=== PATIENT | female | born 1965 | race Two or more races ===

== ENCOUNTER 2018-11-16 17:28 | Emergency (ER) | payer SELFPAY ==
[~2018-11-16] VITALS: Ht 152.4 cm; Wt 77.1 kg
[2018-11-16 20:20] VITALS: BP 108/77
== END 2018-11-16 21:35 | disposition home or self-care (01) ==
LOC: ER 17:35
DX: L02.212 Cutaneous abscess of back [any part, except buttock and flank] (principal)

== ENCOUNTER 2022-09-13 01:00 | Emergency (ER) | payer MEDICAID ==
[~2022-09-13] VITALS: Ht 152.4 cm; Wt 70.8 kg
[2022-09-13] MEDS ORDERED: LORazepam 2MG/ML-1ML VIAL IM ONE (01:45)
[2022-09-13] MEDS ORDERED: ONDANSETRON HCL 4 MG/2 ML VIAL IM ONE (01:45)
[2022-09-13] MEDS ORDERED: HYDROmorphone HCL 2 MG/ML VL/or syr IM ONE (01:45)
[2022-09-13] MEDS ORDERED: SODIUM CHLORIDE 0.9% 1,000 ML IV ONE ×2 (04:30→05:15)
[2022-09-13 06:00] VITALS: BP 106/70
[2022-09-13 07:04] LABS: Basophils # (auto) 0 10 ^3/uL (0-0.2); Basophils % (auto) 0.2 % (0.0-2.0); Eosinophils # (auto) 0 10 ^3/uL (0-0.8); Eosinophils % (auto) 0.5 % (0.0-7.0); Hematocrit 37.8 % (36.0-46.0); Hemoglobin 12.9 g/dL (12.2-16.2); Lymphocytes # (auto) 1.3 10 ^3/uL (0.4-5.4); Lymphocytes % (auto) 20.5 % (10.0-50.0); Mean Corpuscular Hemoglobin 31.3 pg (28.0-32.0); Mean Corpuscular Volume 92.1 fL (80.0-100.0); Monocytes # (auto) 0.4 10 ^3/uL (0-1.3); Monocytes % (auto) 5.8 % (0.0-12.0); Neutrophils # (auto) 4.6 10 ^3/uL (1.6-8.6); Red Blood Cells 4.11 10^6/uL (4.0-5.20); White Blood Cell 6.3 10^3/uL (4.4-10.8)
== END 2022-09-13 07:28 | disposition home or self-care (01) ==
LOC: ER 01:00
DX: S03.03XA Dislocation of jaw, bilateral, initial encounter (principal); X58.XXXA Exposure to other specified factors, initial encounter; Y93.89 Activity, other specified; Y92.89 Other specified places as the place of occurrence of the external cause; Y99.8 Other external cause status
CPT/HCPCS: 21480; 36415; 70450; 70486; 85025; 96360; 96361; 96372; 99285; J1170; J2060; J2405; J7030